=== PATIENT | female | born 1950 | race Caucasian/White ===

== ENCOUNTER → 2016-02-22 | Outpatient (CLI) | payer MEDICARE, BC | LOC: GMAL 10:43 | PROVIDERS: ATTEND Family Medicine | DX: D51.3 Other dietary vitamin B12 deficiency anemia (principal); E55.9 Vitamin D deficiency, unspecified ==

== ENCOUNTER → 2016-05-21 | Outpatient (CLI) | payer MEDICARE, BC | END | disposition home or self-care (01) | LOC: GMAL 14:15 | PROVIDERS: ATTEND Family Medicine | DX: D51.3 Other dietary vitamin B12 deficiency anemia (principal); E55.9 Vitamin D deficiency, unspecified; D53.9 Nutritional anemia, unspecified ==

== ENCOUNTER → 2016-05-30 | Outpatient (CLI) | payer MEDICARE ==
--- NOTE | 2016-05-30 17:04 | US ---
History: Peripheral vascular disease. Bilateral lower extremity arterial Doppler: Arterial Doppler evaluation of the lower extremities bilaterally is performed. Patency of the lower extremity vessels is confirmed without significant atheromatous change identified. Spectral waveforms and velocities are maintained bilaterally. Further assessment may be obtained with segmental arterial pressures. IMPRESSION: Spectral waveforms and velocities are within normal limits. Significant runoff disease is not suggested on the images obtained. Electronically signed by: Ernestina Zaragoza MD 05/30/2016 5:03 PM CDT
== END | disposition home or self-care (01) ==
LOC: US 07:54
PROVIDERS: ATTEND Family Medicine
DX: I73.9 Peripheral vascular disease, unspecified (principal)

== ENCOUNTER → 2016-08-28 | Outpatient (CLI) | payer MEDICARE | END | disposition home or self-care (01) | LOC: GMAL 10:39 | PROVIDERS: ATTEND Family Medicine | DX: N39.0 Urinary tract infection, site not specified (principal) ==

== ENCOUNTER → 2016-12-24 | Outpatient (CLI) | payer MEDICARE | END | disposition home or self-care (01) | LOC: GMAL 11:43 | PROVIDERS: ATTEND Family Medicine | DX: D51.3 Other dietary vitamin B12 deficiency anemia (principal) ==

== ENCOUNTER → 2016-12-31 | Outpatient (CLI) | payer MEDICARE | END | disposition home or self-care (01) | LOC: GMAL 14:27 | PROVIDERS: ATTEND Family Medicine | DX: N39.0 Urinary tract infection, site not specified (principal) ==

== ENCOUNTER 2017-02-27 08:07 | Emergency (ER) | payer MEDICARE ==
--- NOTE | 2017-02-27 08:29 | ED.PDOC ---
History of Present Illness - General Chief Complaint: Respiratory Problem Stated Complaint: shortness of breath/AMS Time Seen by Provider: 02/27/17 08:27 Source: EMS notes reviewed, family - son in law Exam Limitations: clinical condition, other - lethargic - History of Present Illness Initial Comments: Roxy Johnson 67 y/o female brought by ems after she was found leaning over on her side table this morning at home by her son in law; son in law tried talking to her this morning and was telling she is ok and leans back to her table so EMS was then called and noted O2 saturation at 80 %.She has COPD on home oxygen.Son in law stated that saw her Md 3 days ago for high blood pressure and elevated heart rate and was given prescription then 3 days ago have not been eating regularly and just wants to stay in her room. Timing/Duration: just prior to arrival Severity: moderate Episode Description: see hpi Possible Cause: occasional episodes Worsening Factors: nothing Associated Symptoms: other - patient lethargic Allergies/Adverse Reactions: Allergies NO KNOWN ALLERGY Allergy (Verified 10/11/15 10:41) Home Medications: Ambulatory Orders RX: Albuterol Sulfate Nebs [Proventil Nebs] 2.5 mg INH Q4H PRN 10/11/15 RX: Albuterol Sulfate [Proair Hfa] 2 puff INH Q4H PRN 10/11/15 RX: Budesonide-Formoterol Fumarate [Symbicort 80-4.5 Mcg/Act] 1 aer IN BID 10/10 RX: Diclofenac Sodium [Voltaren] 75 mg PO BID PRN 10/11/15 RX: Lisinopril & Hydrochlorothiazi [Lisinopril/Hctz 10-12.5 mg] 1 tab PO DAILY 10/11/15 RX: Montelukast [Singulair] 10 mg PO DAILY 10/11/15 RX: Tizanidine HCl [Zanaflex] 2 mg PO Q8H PRN 10/11/15 RX: Azithromycin Tab [Zithromax Tab] 250 mg PO Q24H #1 tab 10/14/15 RX: Cefdinir 300 mg PO BID #5 cap 10/14/15 RX: guaiFENesin ER TAB [Mucinex Tab] 600 mg PO BID #0 tab 10/14/15 predniSONE [Prednisone] 20 mg PO DAILY 5 Days tab 10/14/15 predniSONE [Prednisone] 40 mg PO DAILY 3 Days tab 10/14/15 Review of Systems - Review of Systems Respiratory: States: see HPI Unable to Obtain Due To: condition, other - lethargic non verbally responding Past Medical History (General) - Patient Medical History Hx Stroke: No Hx Asthma: Yes Hx of COPD: Yes Hx Congestive Heart Failure: No Hx Hypertension: Yes Hx Diabetes: No Hx MRSA: No Surgical History: noncontributory - Vaccination History Hx Influenza Vaccination: Yes - 2014 Hx Pneumococcal Vaccination: Yes - 2014 - Social History Hx Tobacco Use: Yes - Activities of Daily Living Grooming Ability: Standby Assistance Eating (Feeding) Ability: Standby Assistance Toileting Ability: Standby Assistance Family Medical History - Family History Mother Living Status: Hx Family Cancer: Yes Physical Exam - Physical Exam General Appearance: No apparent distress, Lethargic Eye Exam: bilateral normal ENT Exam: normal ENT inspection, pharynx normal Neck: full range of motion, supple, trachea midline Respiratory: chest non-tender, decreased breath sounds Cardiovascular/Chest: normal peripheral pulses, tachycardia - heart rate-116 Gastrointestinal/Abdominal: non tender, soft, no organomegaly Extremity: non-tender, no calf tenderness Neurologic: other - lethargic Skin Exam: normal color, warm/dry Progress - Progress Progress: 02/27/17 09:01 Last Vital Signs Temp 97.1 F L 02/27/17 08:19 Pulse 113 H 02/27/17 08:31 Resp 32 H 02/27/17 08:39 BP 126/65 02/27/17 08:19 Pulse Ox 97 02/27/17 08:31 - Results/Orders Results/Orders: Laboratory Tests 02/27/17 02/27/17 02/27/17 08:49 08:49 08:49 WBC 16.9 H RBC 3.71 L Hgb 11.2 L Hct 34.8 L MCV 93.7 MCH 30.1 MCHC 32.1 L RDW 14.3 Plt Count 307 MPV 9.0 Absolute Neuts (auto) 15.60 H Absolute Lymphs (auto) 0.30 L Absolute Monos (auto) 0.90 H Absolute Eos (auto) 0.00 Absolute Basos (auto) 0.00 Neutrophils % 92.6 H Lymphocytes % 1.9 L Monocytes % 5.3 Eosinophils % 0.0 L Basophils % 0.2 D-Dimer, Quantitative 871 H* Sodium 139 Potassium 4.3 Chloride 95 L Carbon Dioxide 33 H Anion Gap 15.3 BUN 23 H Creatinine 0.85 BUN/Creatinine Ratio 27.1 H Random Glucose 122 H Serum Osmolality 282.5 Calcium 9.2 Total Bilirubin 0.8 AST 16 ALT 15 Alkaline Phosphatase 87 Troponin I B-Natriuretic Peptide 335.0 H* Serum Total Protein 6.5 Albumin 3.0 L Globulin 3.5 Albumin/Globulin Ratio 0.9 L Urine Color Urine Appearance Urine pH Ur Specific [place] Urine Protein Urine Glucose (UA) Urine Ketones Urine Blood Urine Nitrite Urine Bilirubin Urine Urobilinogen Ur Leukocyte Esterase Urine RBC Urine WBC Ur Epithelial Cells Amorphous Sediment Urine Bacteria Coarse Granular Casts 02/27/17 02/27/17 08:49 09:38 WBC RBC Hgb Hct MCV MCH MCHC RDW Plt Count MPV Absolute Neuts (auto) Absolute Lymphs (auto) Absolute Monos (auto) Absolute Eos (auto) Absolute Basos (auto) Neutrophils % Lymphocytes % Monocytes % Eosinophils % Basophils % D-Dimer, Quantitative Sodium Potassium Chloride Carbon Dioxide Anion Gap BUN Creatinine BUN/Creatinine Ratio Random Glucose Serum Osmolality Calcium Total Bilirubin AST ALT Alkaline Phosphatase Troponin I 0.02 B-Natriuretic Peptide Serum Total Protein Albumin Globulin Albumin/Globulin Ratio Urine Color Yellow Urine Appearance Cloudy Urine pH 5.0 Ur Specific [place] >= 1.030 Urine Protein >=300 H Urine Glucose (UA) Negative Urine Ketones 15 H Urine Blood Large H Urine Nitrite Negative Urine Bilirubin Small H Urine Urobilinogen 1.0 Ur Leukocyte Esterase Negative Urine RBC 3-5 H Urine WBC 5-10 H Ur Epithelial Cells 1-3 Amorphous Sediment 3+ Urine Bacteria 2+ H Coarse Granular Casts 3-5 - EKG/XRAY/CT EKG: Sinus, Tachy Comments: heart [id number] XRAY: chest - cardiomegaly-chf;hazy alveolar opacities right lung base,small pleural effusion CT: head-no acute abnormalities CT Ordered: Yes - moderate copd,multiple lung nodule Departure - Departure Clinical Impression: COPD exacerbation, Pulmonary nodule, right Respiratory failure, acute and chronic Qualifiers: Respiratory failure complication: hypoxia Qualified Code(s): J96.21 - Acute and chronic respiratory failure with hypoxia Urinary tract infection Qualifiers: Urinary tract infection type: site unspecified Hematuria presence: with hematuria Qualified Code(s): N39.0 - Urinary tract infection, site not specified ; R31.9 - Hematuria, unspecified Altered mental status Qualifiers: Altered mental status type: unspecified Qualified Code(s): R41.82 - Altered mental status, unspecified Time of Disposition: 12:20 - D/W Mihir Edgar-ANP/Hospitalist Disposition: Admit Patient Condition: Fair Departure Forms: Patient Portal Self Enrollment Referrals: Javon Ortiz III, MD [Primary Care Provider] - 1-2 Weeks Home Medications: Ambulatory Orders RX: Albuterol Sulfate Nebs [Proventil Nebs] 2.5 mg INH Q4H PRN 10/11/15 RX: Albuterol Sulfate [Proair Hfa] 2 puff INH Q4H PRN 10/11/15 RX: Budesonide-Formoterol Fumarate [Symbicort 80-4.5 Mcg/Act] 1 aer IN BID 10/10 RX: Diclofenac Sodium [Voltaren] 75 mg PO BID PRN 10/11/15 RX: Lisinopril & Hydrochlorothiazi [Lisinopril/Hctz 10-12.5 mg] 1 tab PO DAILY 10/11/15 RX: Montelukast [Singulair] 10 mg PO DAILY 10/11/15 RX: Tizanidine HCl [Zanaflex] 2 mg PO Q8H PRN 10/11/15 RX: Azithromycin Tab [Zithromax Tab] 250 mg PO Q24H #1 tab 10/14/15 RX: Cefdinir 300 mg PO BID #5 cap 10/14/15 RX: guaiFENesin ER TAB [Mucinex Tab] 600 mg PO BID #0 tab 10/14/15 predniSONE [Prednisone] 20 mg PO DAILY 5 Days tab 10/14/15 predniSONE [Prednisone] 40 mg PO DAILY 3 Days tab 10/14/15 Decision To Admit - Decistion To Admit Decision to Admit Reason: Admit from ER - Patient desaturates need hospitalization for Iv steroids,breathing treatments and bipaps Decision to Admit Date: 02/27/17 Decision to Admit Time: 12:17
[2017-02-27] MEDS ORDERED: IPRATROPIUM/ALBUTEROL 3 ML VIAL NEB ONE ×2 (08:31)
--- NOTE | 2017-02-27 09:06 | RAD ---
EXAM DESCRIPTION: Chest,1 View CLINICAL HISTORY: Shortness of breath COMPARISON: October 14, 2015 Findings: Single upright portable frontal view of the chest. Cardiac silhouette shows cardiomegaly with increased interstitial markings bilaterally, compatible with interstitial edema. There is early hazy alveolar opacities in the right lung base, suggesting early pulmonary edema versus atelectasis versus early infiltrate. There is blunting of the right costophrenic angle with mildly thickened right fissure, compatible with small right-sided pleural effusion. No pneumothorax. IMPRESSION: 1. Cardiomegaly with interstitial edema, compatible with congestive heart failure. 2. Hazy alveolar opacities in the right lung base may represent early pulmonary edema versus atelectasis versus early infiltrate. 3. Blunting of the right costophrenic angle with mildly thickened fissure, compatible with small right-sided pleural effusion. Electronically signed by: Javon Mckeon MD 02/27/2017 9:05 AM WEB MARKETING ANALYST
--- NOTE | 2017-02-27 09:51 | CT ---
EXAM DESCRIPTION: Head: Computed Tomography. CLINICAL HISTORY: AMS. Decreasing responsiveness, speech, increasing somnolence. COMPARISON: None. TECHNIQUE: Non-helical axial scans through the skull and brain, at 2.5 mm intervals, non-contrast. Coronal and sagittal 2.0 mm reconstructions. Total Exam DLP: 677.23 mGy-cm. This exam was performed according to our departmental dose-optimization program which includes automated exposure control, adjustment of the mA and/or kV according to patient size and/or use of iterative reconstruction technique; to reduce radiation dose to as low as reasonably achievable (ALARA). Technically difficult study due to patient motion and patient mental status not allowing optimal positioning for the scan. FINDINGS: Motion artifact particularly posterior middle fossa. No hemorrhage, no mass-effect, and no midline shift. Minimal low-density bilateral periventricular white matter which is symmetric. No abnormal radiodense material in the brain parenchyma. Vascular calcifications anterior circulation; physiologic calcifications in the pineal gland and choroid plexus. No effacement or displacement of the ventricles, CSF spaces, or subdural spaces. No extra axial fluid collection or hemorrhage. No gross abnormalities of the bony calvarium. Loss of bone density in the skull. Included paranasal sinuses and mastoid air cells are well - aerated. IMPRESSION: 1. No hemorrhage, no mass effect, no midline shift. Technically difficult study due to patient mental status resulting in motion artifact and positioning less than optimal. Periventricular small vessel disease bilaterally symmetric. 2. CT scans are insensitive for detecting small CVAs in the first 24 hours after onset. Evaluation of the brain stem is also limited. If symptoms persist, consider MRI scan of the brain with diffusion imaging. CRITICAL COMMUNICATION: The critical value was discussed directly by phone with Emergency Medicine nurse assisting Dr. Marquez, Caprice Carpenter RN, at approximately 947 hours, on February 27, 2017. Electronically signed by: Shoaib Lerma MD 02/27/2017 9:50 AM BOX ORDER PERSON
[2017-02-27] MEDS ORDERED: cefTRIAXone SODIUM 1 GM in SODIUM CHL 0.9% 50ML MIN-BAG+ 50 ML IVPB ONE (10:21)
[2017-02-27] MEDS ORDERED: cefTRIAXone SODIUM 1 GM VIAL ONE (10:34)
[2017-02-27] MEDS ORDERED: SODIUM CHL 0.9% 50ML MIN-BAG+ 50 ML IVPB ONE (10:35)
--- NOTE | 2017-02-27 11:57 | CT ---
EXAM DESCRIPTION: CTA Chest: Computed tomography. CLINICAL HISTORY: elevated d -dimer;tachycardia;low sao2 COMPARISON: CT scan of the head and chest x-ray on this visit. TECHNIQUE: Spiral-axial scans at 5.0 mm intervals through the pulmonary arteries and chest after bolus infusion of IV contrast. Coronal 15.0 Mm 3-D reformat. 15.0 mm PE bilateral oblique oblique 3-D reformatted images. No adverse reactions. Total Exam DLP: 595.20 mGy-cm. This exam was performed according to our departmental CT dose-optimization program which includes automated exposure control, adjustment of the mA and/or kV according to patient size and/or use of iterative reconstruction technique; to reduce radiation dose to as low as reasonably achievable (ALARA). FINDINGS: The density of the main pulmonary artery is greater than that of the proximal aortic arch. Greater density in the superior IVC. Contrast in the main pulmonary artery to the proximal subsegmental pulmonary artery branches bilaterally with no filling defects. Inhomogeneous enhancement of the thyroid gland with 1.5 cm nonenhancing nodule left lobe. No soft tissue masses or enlarged lymph nodes in the mediastinum or left hilum. 1.2 cm short axis right hilar lymph node and a second 1 cm short axis lymph node. Atherosclerotic calcifications in the thoracic aorta and proximal brachiocephalic vessels. Atherosclerotic coronary arteries. Mosaic parenchymal density bilateral lung kathleen with more dilated airspaces in pulmonary blebs in the upper lobes. 6 mm soft tissue (series 2, image 26). Slightly more irregular 8 mm nodule subpleural base of the right middle lobe (image 42). Irregular 1.7 cm nodule in the posterior recess of the right lateral lower lobe abutting the pleura and diaphragm (image 58). Minimal pleural thickening in the right lower lobe. Irregular soft tissue nodule measuring 14 x 10 mm in the anterior subpleural lateral right lower lobe (image 47). Irregular pleural thickening left hemithorax and left lower lobe volume loss probably related to marked thoracic cage deformity from scoliosis. Somewhat irregular 6 mm nodule abutting the lateral pleura at the base of the left lower lobe. Nodule in the bilateral subpleural right middle lobe (image 56). Diffuse low-density in the liver. No subdiaphragmatic fluid or free air in the included peritoneal cavity. Included spleen and adrenal glands normal enhancement and density. Atherosclerotic calcifications in the aorta. Severe thoracolumbar levorotoscoliosis. Mild mid thoracic dextroscoliosis. Spondylosis cervical and thoracic spines, more severe at the thoracolumbar junction. IMPRESSION: 1. No evidence of acute pulmonary embolus on CTA of the pulmonary arteries. 2. Moderate emphysematous changes in the lungs more prevalent in the upper lobes. Several nodules are noted bilaterally. Enlarged 14 mm nodule or mass in the right middle lobe suspicious for primary lung malignancy or metastatic lesion. Possible adenopathy in the left hilum. Consider tissue diagnosis. Alternative PET scan or [address] follow-up. No pleural effusion or pneumothorax. 3. Severe thoracolumbar levorotoscoliosis. Cervical thoracic and lumbar spondylosis. Steatosis of the liver. CRITICAL COMMUNICATION: The critical value was discussed directly by phone with Dr. Marquez at approximately 1130 hours, on February 27, 2017. Electronically signed by: Shoaib Lerma MD 02/27/2017 11:56 AM [facility]
[2017-02-27] MEDS ORDERED: SUCCINYLCHOLINE CHLORIDE 200 MG/10 ML VIAL ONE (13:41)
--- NOTE | 2017-02-27 14:30 | RAD ---
EXAM DESCRIPTION: Chest,1 View CLINICAL HISTORY: s/p intubation COMPARISON: None available TECHNIQUE: AP portable chest FINDINGS: An endotracheal tube is seen at the level of the thoracic inlet. The chest is hyperexpanded. The heart is within range of normal. Convexity of the thoracic spine to the right is observed. Blunting of the right costophrenic sulcus is observed consistent with a small right pleural effusion. Interstitial lung disease is observed in the most part appears chronic in nature. IMPRESSION: 1. The patient is intubated. 2. Hyperexpansion of the chest is observed with interstitial lung disease suggesting chronic obstructive pulmonary disease. 3. A small right pleural effusion is identified. Electronically signed by: Javon Blount MD 02/27/2017 2:29 PM CARD RUNNER
[2017-02-27] MEDS ORDERED: VECURONIUM BROMIDE 10 MG VIAL IV ONE (14:44)
[2017-02-27] MEDS ORDERED: WATER FOR INJ 10 ML VIAL INJ ONE (15:00)
[2017-02-27] MEDS ORDERED: MIDAZOLAM INJ 5 MG/5 ML VIAL ONE (15:00)
[2017-02-27 15:22] VITALS: BP 111/68; TEMP 97.4; O2SAT 100
== END 2017-02-27 15:25 | disposition short-term general hospital (02) ==
LOC: ER 08:07
DX: J44.1 Chronic obstructive pulmonary disease with (acute) exacerbation (principal); J96.21 Acute and chronic respiratory failure with hypoxia; N39.0 Urinary tract infection, site not specified; R41.82 Altered mental status, unspecified; Z99.81 Dependence on supplemental oxygen; R91.8 Other nonspecific abnormal finding of lung field; I10 Essential (primary) hypertension
CPT/HCPCS: 36415; 36600; 70450; 71045; 71275; 80053; 81001; 82803; 82805; 83605; 83880; 84484; 85025; 85379; 87040; 87086; 87502; 93005; 94002; 94640; 94660; 94770; A4216; J0330; J0696; J2060; J2250; J7050; J7620

== ENCOUNTER 2017-03-19 16:50 | Inpatient (IN) | payer MEDICARE ==
[2017-03-19] MEDS ORDERED: MAGNESIUM HYDROXIDE 30 ML UD PO PRN (18:38)
[2017-03-19] MEDS ORDERED: ACETAMINOPHEN 500 MG TAB PO PRN (18:38)
[2017-03-19] MEDS ORDERED: HYDROcodone 5MG/APAP 325MG 1 EA TAB PO PRN (18:38)
[2017-03-19] MEDS ORDERED: TEMAZEPAM 15 MG CAP PO PRN (18:38)
[2017-03-19] MEDS ORDERED: SODIUM PHOS/BIPHOS ENEMA ADULT 133 ML BTTL PR PRN (18:38)
[2017-03-19] MEDS ORDERED: LORazepam 0.5 MG TAB PO PRN (18:49)
[2017-03-19] MEDS ORDERED: LISINOPRIL 10 MG TAB ONE (19:20)
[2017-03-19] MEDS: IPRATROPIUM/ALBUTEROL 3 ML VIAL NEB SCH (19:34)
--- NOTE | 2017-03-19 19:59 | HP ---
HISTORY OF PRESENT ILLNESS: This 67 year-old white female is admitted to Swing Bed rehabilitation from [facility]. She has had a significant 3 week course of severe illness requiring 2 hospitalizations at [facility] and a 1 night stay at [facility]. She originally became ill on February 23 on Friday. It started with severe shortness of breath to the point where she had difficulty speaking in sentences and could not get up and walk because of the shortness of breath. She was eventually brought to the Emergency Room where she had 5 hours of BiPAP usage and then a blood gas was performed that revealed CO2 of 88 and a low oxygen suggesting significant respiratory failure. She proceeded to fatigue and required emergency intubation and transfer to the ICU in [place] where she was cared for for over 2 weeks. She was subsequently discharged to [facility] with some respiratory overnight support suggesting a BiPAP or a CPAP machine which will be endeavored to determine which it was. The next morning after a night at [facility], she had to be readmitted to [facility] for another week of intensive care because of the significant failure. She was subsequently prepared and ready for discharge from the hospital and was transferred via family car to Swing Bed rehabilitation at [facility]. She is to enter a program of respiratory and strengthening rehabilitation until she will be safe to return home. PAST MEDICAL HISTORY: 1. Chronic obstructive pulmonary disease. 2. Hypertension. 3. Chronic tobacco usage. 4. Depression. 5. Chronic sciatica with low back pain. PAST SURGICAL HISTORY: 1. section twice. 2. Tubal ligation. 3. Tonsillectomy and adenoidectomy as a child. CURRENT MEDICATIONS: Please refer to nurses' notes for a list of verified home medications. We are still awaiting the Discharge Summary from the hospital which will assist. ALLERGIES: NONE KNOWN. FAMILY HISTORY: Positive for cancer, coronary artery disease and hypertension. 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 She is and lives in [place], [place] with daughter and family. She has a history of smoking 1 to 1-1/2 packs a day for 50+ years and stopped smoking about a year ago. REVIEW OF SYSTEMS: No significant weight change. No fever noted. HEENT: Hearing and vision appear to be normal. LUNGS: Significant shortness of breath recently but also in recent years getting progressively worse, especially aggravated by exertion. No significant cough or hemoptysis. CARDIOVASCULAR: No significant chest pains or palpitations. GASTROINTESTINAL: Appetite is diminished though slowly improving. No blood in the stools. GENITOURINARY: No dysuria. NEUROLOGIC: No focal weakness. No significant headaches. She is very weak and has not been able to significantly walk for the last 3 weeks. PHYSICAL EXAMINATION: VITAL SIGNS: Afebrile, pulse 14, blood pressure 158/78, respirations 22, room air saturation 79 when she arrived from transport with her oxygen having run out shortly before her arrival. Saturation was 100% on 3 liters which was decreased and will continue with titration to 90 to 93% for the duration. Weight is 63.9 kilos on a built-in bed scale. GENERAL: The patient is awake and alert. She is able to talk in full sentences. Still a little short of breath but much improved. She admits to not remembering much about her hospital stay initially or on the return from [facility], but she seems to be fully awake and alert at this time to her surroundings. HEENT: Within normal limits. NECK: Supple. CHEST: Lungs have diminished breath sounds with some upper airway expiratory wheezing and respiratory slowing on exhalation. Occasional rhonchi with diminished breath sounds. CARDIOVASCULAR: Heart tones are somewhat distant yet regular, somewhat fast. ABDOMEN: Soft. No organomegaly, masses or tenderness. EXTREMITIES: Trace of edema. SCDs in place. NEUROLOGIC: No focal neurological deficits. The patient is awake, alert and oriented and communicative. LABORATORY: None noted. We are awaiting a review of recent lab studies with anemia noted at [facility]. Repeat followup in a couple of days. ASSESSMENT: 1. Chronic obstructive pulmonary disease with an acute exacerbation with end stage disease process. 2. History of chronic tobacco abuse now stopped for a year. 3. History of recent acute respiratory failure with CO2 retention and respiratory acidosis showing some improvement and stabilization with the use of BiPAP respiratory support. 4. Anemia. Continue evaluation for the type, yet probably an anemia of chronic disease with a normocytic normochromic presentation to be determined. PLAN: The patient will be admitted for continued respiratory hygiene and bronchodilators. She will need strengthening with Physical Therapy supervision with special attention to cardiopulmonary endurance and improving her confidence so that when she goes home she will be able to assist in her care. Will request nurses to request Discharge Summary from [facility] tomorrow, hopefully when available. Continue close followup. #[id number] [facility]
[2017-03-19] MEDS: CIPROFLOXACIN 250 MG TAB PO SCH (20:22)
[2017-03-19] MEDS: LINEZOLID 600 MG PO SCH (20:23)
[2017-03-19] MEDS ORDERED: [UNRECOGNIZED DRUG - OTHER] INH SCH (21:00)
[2017-03-19] MEDS ORDERED: METOPROLOL TARTRATE 25 MG TAB PO SCH (21:00)
[2017-03-19] MEDS ORDERED: [UNRECOGNIZED DRUG - OTHER] INH SCH (21:00)
[2017-03-19] MEDS ORDERED: BUDESONIDE FORMOTEROL FUMARATE INH SCH (21:00)
[2017-03-19] MEDS: LEVALBUTEROL NEBS 1.25 MG/3 ML VIAL NEB PRN (23:50)
[2017-03-20] MEDS: LEVALBUTEROL NEBS 1.25 MG/3 ML VIAL NEB PRN (05:54)
[2017-03-20] MEDS: IPRATROPIUM/ALBUTEROL 3 ML VIAL NEB SCH ×3 (07:28→20:20)
[2017-03-20] MEDS: LINEZOLID 600 MG PO SCH ×2 (09:00→20:53)
[2017-03-20] MEDS: METOPROLOL TARTRATE 25 MG TAB PO SCH ×2 (09:41→16:27)
[2017-03-20] MEDS: LISINOPRIL 10 MG TAB PO SCH (09:41)
[2017-03-20] MEDS: CIPROFLOXACIN 250 MG TAB PO SCH ×2 (09:41→20:54)
[2017-03-20] MEDS: DOCUSATE SODIUM 100 MG CAP PO SCH (09:41)
[2017-03-20] MEDS: MONTELUKAST 10 MG TAB PO SCH (09:41)
[2017-03-20] MEDS: NON-FORMULARY MEDICATION 1 EA MIS (Tiotropium Bromide Monohydrate [Spiriva Respimat] 2 PUF INH SCH (11:15)
[2017-03-20] MEDS: [UNRECOGNIZED DRUG - OTHER] INH SCH ×2 (11:15→20:19)
[2017-03-20] MEDS: BUDESONIDE FORMOTEROL FUMARATE INH SCH ×2 (11:15→20:19)
[2017-03-20] MEDS: ALBUTEROL SULFATE INH SCH ×2 (11:15→20:19)
[2017-03-21] MEDS: LEVALBUTEROL NEBS 1.25 MG/3 ML VIAL NEB PRN (04:39)
[2017-03-21] MEDS: LISINOPRIL 10 MG TAB PO SCH (07:53)
[2017-03-21] MEDS: IPRATROPIUM/ALBUTEROL 3 ML VIAL NEB SCH ×3 (08:29→20:30)
[2017-03-21] MEDS: [UNRECOGNIZED DRUG - OTHER] INH SCH ×2 (08:29→20:31)
[2017-03-21] MEDS: BUDESONIDE FORMOTEROL FUMARATE INH SCH ×2 (08:29→20:31)
[2017-03-21] MEDS: NON-FORMULARY MEDICATION 1 EA MIS (Tiotropium Bromide Monohydrate [Spiriva Respimat] 2 PUF INH SCH (08:29)
[2017-03-21] MEDS: CIPROFLOXACIN 250 MG TAB PO SCH ×2 (09:13→21:27)
[2017-03-21] MEDS: BIFIDOBACTERIUM INFANTIS 4 MG CAP PO SCH (09:13)
[2017-03-21] MEDS: MONTELUKAST 10 MG TAB PO SCH (09:13)
[2017-03-21] MEDS: DOCUSATE SODIUM 100 MG CAP PO SCH (09:13)
[2017-03-21] MEDS: LINEZOLID 600 MG PO SCH ×2 (09:16→21:27)
[2017-03-21] MEDS: METOPROLOL TARTRATE 25 MG TAB PO SCH ×2 (09:16→17:07)
[2017-03-21] MEDS: ALBUTEROL SULFATE INH SCH ×2 (15:44→20:31)
[2017-03-22] MEDS: METOPROLOL TARTRATE 25 MG TAB PO SCH ×2 (08:00→17:44)
[2017-03-22] MEDS: BUDESONIDE FORMOTEROL FUMARATE INH SCH ×2 (08:13→19:59)
[2017-03-22] MEDS: IPRATROPIUM/ALBUTEROL 3 ML VIAL NEB SCH ×3 (08:13→19:58)
[2017-03-22] MEDS: [UNRECOGNIZED DRUG - OTHER] INH SCH ×2 (08:13→19:59)
[2017-03-22] MEDS: NON-FORMULARY MEDICATION 1 EA MIS (Tiotropium Bromide Monohydrate [Spiriva Respimat] 2 PUF INH SCH (08:14)
[2017-03-22] MEDS: BIFIDOBACTERIUM INFANTIS 4 MG CAP PO SCH (10:00)
[2017-03-22] MEDS: CIPROFLOXACIN 250 MG TAB PO SCH ×2 (10:00→20:55)
[2017-03-22] MEDS: DOCUSATE SODIUM 100 MG CAP PO SCH (10:00)
[2017-03-22] MEDS: MONTELUKAST 10 MG TAB PO SCH (10:00)
[2017-03-22] MEDS: LINEZOLID 600 MG PO SCH ×2 (10:00→20:55)
[2017-03-22] MEDS: LISINOPRIL 10 MG TAB PO SCH (10:00)
[2017-03-22] MEDS: ALBUTEROL SULFATE INH SCH ×2 (10:54→20:01)
[2017-03-22] MEDS ORDERED: CALCIUM CARBONATE (ANTACID) 500 MG CHEWABLE TAB PO PRN (21:34)
[2017-03-23] MEDS: BIFIDOBACTERIUM INFANTIS 4 MG CAP PO SCH (08:15)
[2017-03-23] MEDS: LINEZOLID 600 MG PO SCH ×2 (08:15→20:31)
[2017-03-23] MEDS: METOPROLOL TARTRATE 25 MG TAB PO SCH ×2 (08:15→16:37)
[2017-03-23] MEDS: LISINOPRIL 10 MG TAB PO SCH (08:15)
[2017-03-23] MEDS: CIPROFLOXACIN 250 MG TAB PO SCH ×2 (08:15→20:32)
[2017-03-23] MEDS: DOCUSATE SODIUM 100 MG CAP PO SCH (08:16)
[2017-03-23] MEDS: MONTELUKAST 10 MG TAB PO SCH (08:16)
[2017-03-23] MEDS: NON-FORMULARY MEDICATION 1 EA MIS (Tiotropium Bromide Monohydrate [Spiriva Respimat] 2 PUF INH SCH (08:43)
[2017-03-23] MEDS: [UNRECOGNIZED DRUG - OTHER] INH SCH ×2 (08:43→19:50)
[2017-03-23] MEDS: BUDESONIDE FORMOTEROL FUMARATE INH SCH ×2 (08:43→19:50)
[2017-03-23] MEDS: IPRATROPIUM/ALBUTEROL 3 ML VIAL NEB SCH ×3 (08:43→19:50)
[2017-03-23] MEDS: ALBUTEROL SULFATE INH SCH (09:12)
[2017-03-23] MEDS ORDERED: ALBUTEROL SULFATE INH PRN (09:15)
[2017-03-23] MEDS: PANTOPRAZOLE SODIUM TAB 40 MG PO SCH (10:01)
[2017-03-24] MEDS: PANTOPRAZOLE SODIUM TAB 40 MG PO SCH (06:05)
[2017-03-24] MEDS: LEVALBUTEROL NEBS 1.25 MG/3 ML VIAL NEB PRN (06:50)
[2017-03-24] MEDS: CIPROFLOXACIN 250 MG TAB PO SCH (08:39)
[2017-03-24] MEDS: MONTELUKAST 10 MG TAB PO SCH (08:39)
[2017-03-24] MEDS: METOPROLOL TARTRATE 25 MG TAB PO SCH ×2 (08:39→17:41)
[2017-03-24] MEDS: DOCUSATE SODIUM 100 MG CAP PO SCH (08:39)
[2017-03-24] MEDS: LINEZOLID 600 MG PO SCH (08:40)
[2017-03-24] MEDS: BIFIDOBACTERIUM INFANTIS 4 MG CAP PO SCH (08:40)
[2017-03-24] MEDS: LISINOPRIL 10 MG TAB PO SCH ×2 (08:42→09:00)
--- NOTE | 2017-03-24 08:59 | PN ---
SUPERVISING PHYSICIAN: Victorino Proctor MD DATE: 03/23/17 SUBJECTIVE: The patient is showing good response with physical therapy on Swing Bed admission. She has had no further setbacks in regard to her chronic obstructive pulmonary disease and respiratory efforts. She does remain short of breath at rest at times, but is doing well with nasal cannula and CPAP at night. She has finished her antibiotic therapy today including her Zyvox and Cipro. OBJECTIVE: VITAL SIGNS: Afebrile. Pulse between 89 and 112. Blood pressure currently today was 110/73. Respirations 19. Saturation 96% on nasal cannula at rest on 2 liters. I&Os have been well balanced. LABORATORY: No additional studies since admission. RADIOLOGY: No additional studies since admission. ASSESSMENT: 1. Chronic obstructive pulmonary disease with an acute exacerbation with end stage disease process. 2. History of chronic tobacco abuse, now stopped for a year. 3. History of recent acute respiratory failure with CO2 retention and respiratory acidosis, showing some improvement and stabilization with the use of BiPAP and CPAP respiratory support. 4. Anemia, probable chronic in nature with normocytic/normochromic presentation, needing close followup. 5. Significant deconditioning and weakness from extensive hospitalization and chronic illness, requiring further clinical evaluation and treatment with physical therapy on Swing Bed. PLAN: We will continue to follow the patient as she progresses through her physical therapy. She remains on good respiratory hygiene and bronchodilators. She has shown no additional exacerbations of her chronic obstructive pulmonary disease or respiratory efforts. She will need close attention to cardiopulmonary endurance prior to going home with considerations possibly for O2 with cardiopulmonary rehab. We will anticipate discharge at physical therapy 's discretion. Until then, we will continue to monitor the patient closely and treat appropriately. #[id number] [facility]
[2017-03-24] MEDS: BUDESONIDE FORMOTEROL FUMARATE INH SCH ×2 (09:31→19:49)
[2017-03-24] MEDS: NON-FORMULARY MEDICATION 1 EA MIS (Tiotropium Bromide Monohydrate [Spiriva Respimat] 2 PUF INH SCH (09:31)
[2017-03-24] MEDS: [UNRECOGNIZED DRUG - OTHER] INH SCH ×2 (09:31→19:49)
[2017-03-24] MEDS: IPRATROPIUM/ALBUTEROL 3 ML VIAL NEB SCH ×3 (09:31→19:47)
[2017-03-25] MEDS: PANTOPRAZOLE SODIUM TAB 40 MG PO SCH (06:06)
[2017-03-25] MEDS: NON-FORMULARY MEDICATION 1 EA MIS (Tiotropium Bromide Monohydrate [Spiriva Respimat] 2 PUF INH SCH (08:19)
[2017-03-25] MEDS: [UNRECOGNIZED DRUG - OTHER] INH SCH ×2 (08:19→21:22)
[2017-03-25] MEDS: IPRATROPIUM/ALBUTEROL 3 ML VIAL NEB SCH ×3 (08:19→21:22)
[2017-03-25] MEDS: BUDESONIDE FORMOTEROL FUMARATE INH SCH ×2 (08:19→21:22)
[2017-03-25] MEDS: DOCUSATE SODIUM 100 MG CAP PO SCH (08:46)
[2017-03-25] MEDS: BIFIDOBACTERIUM INFANTIS 4 MG CAP PO SCH (08:46)
[2017-03-25] MEDS: MONTELUKAST 10 MG TAB PO SCH (08:46)
[2017-03-25] MEDS: LISINOPRIL 10 MG TAB PO SCH (08:46)
[2017-03-25] MEDS: METOPROLOL TARTRATE 25 MG TAB PO SCH ×2 (08:46→17:02)
--- NOTE | 2017-03-25 13:23 | PN ---
SUPERVISING PHYSICIAN: Bassam Douglas MD DATE: 03/25/17 SUBJECTIVE: Ms. Johnson is currently complaining of a little bit of shortness of breath. She has had a little bit of a low O2 saturation this morning. She states that she usually uses 3 to 4 liters at home and she is on 2.5 here. O2 saturations were around 88%. She states at home that she runs anywhere from 92 % to 94% on home oxygen. She does not have any complaints of chest pain at this time. She has been participating in physical therapy and according to the physical therapist is at around 70 feet as far as walking is concerned. The goal is to get to 100 feet. OBJECTIVE: VITAL SIGNS: Blood pressure 112/62. Heart rate 92. Respiratory rate 22. Temperature 97.6. Oxygen saturation 99%. GENERAL: Ms. Johnson has some mild respiratory distress, but seems to be controlled at rest at this time. NEUROLOGIC: Alert and oriented. LUNGS: Diminished with no active wheezing. CARDIOVASCULAR: Regular rate and rhythm. Normal S1, S2. ABDOMEN: Soft. Positive bowel sounds. EXTREMITIES: Lower extremities with no edema. Good peripheral pulses. Capillary refill less than 2 seconds. ASSESSMENT: 1. Chronic obstructive pulmonary disease. 2. Anemia. 3. Deconditioning and weakness secondary to her hospitalization and chronic illness. PLAN: We will continue with physical therapy. I am not going to change her medicines at all at this time as it appears she is on appropriate medications. The plan at this time is that she will be discharged home on . I did discuss with her the possibility of needing a pulmonary evaluation with a fountain dispenser. She has not seen one in the past. [facility] does have a fountain dispenser that comes weekly and we may consider setting her up with Dr. Shane in the outpatient setting. #[id number] MTDD
[2017-03-26] MEDS: PANTOPRAZOLE SODIUM TAB 40 MG PO SCH (06:18)
[2017-03-26] MEDS: METOPROLOL TARTRATE 25 MG TAB PO SCH ×2 (07:52→18:26)
[2017-03-26] MEDS: BUDESONIDE FORMOTEROL FUMARATE INH SCH ×2 (08:16→20:09)
[2017-03-26] MEDS: NON-FORMULARY MEDICATION 1 EA MIS (Tiotropium Bromide Monohydrate [Spiriva Respimat] 2 PUF INH SCH (08:16)
[2017-03-26] MEDS: IPRATROPIUM/ALBUTEROL 3 ML VIAL NEB SCH ×3 (08:16→20:09)
[2017-03-26] MEDS: [UNRECOGNIZED DRUG - OTHER] INH SCH ×2 (08:16→20:09)
[2017-03-26] MEDS: BIFIDOBACTERIUM INFANTIS 4 MG CAP PO SCH (09:39)
[2017-03-26] MEDS: MONTELUKAST 10 MG TAB PO SCH (09:39)
[2017-03-26] MEDS: LISINOPRIL 10 MG TAB PO SCH (09:40)
[2017-03-26] MEDS: DOCUSATE SODIUM 100 MG CAP PO SCH (09:40)
[2017-03-27] MEDS: PANTOPRAZOLE SODIUM TAB 40 MG PO SCH (06:22)
[2017-03-27] MEDS: LISINOPRIL 10 MG TAB PO SCH (08:10)
[2017-03-27] MEDS: MONTELUKAST 10 MG TAB PO SCH (08:10)
[2017-03-27] MEDS: BIFIDOBACTERIUM INFANTIS 4 MG CAP PO SCH (08:10)
[2017-03-27] MEDS: METOPROLOL TARTRATE 25 MG TAB PO SCH ×2 (08:10→17:29)
[2017-03-27] MEDS: DOCUSATE SODIUM 100 MG CAP PO SCH (08:10)
[2017-03-27] MEDS: BUDESONIDE FORMOTEROL FUMARATE INH SCH ×2 (08:16→19:50)
[2017-03-27] MEDS: IPRATROPIUM/ALBUTEROL 3 ML VIAL NEB SCH ×3 (08:16→19:50)
[2017-03-27] MEDS: [UNRECOGNIZED DRUG - OTHER] INH SCH ×2 (08:16→19:50)
[2017-03-27] MEDS: NON-FORMULARY MEDICATION 1 EA MIS (Tiotropium Bromide Monohydrate [Spiriva Respimat] 2 PUF INH SCH (08:16)
[2017-03-27] MEDS: LEVALBUTEROL NEBS 1.25 MG/3 ML VIAL NEB PRN (18:04)
[2017-03-28] MEDS: LEVALBUTEROL NEBS 1.25 MG/3 ML VIAL NEB PRN ×2 (01:54→06:54)
[2017-03-28] MEDS: PANTOPRAZOLE SODIUM TAB 40 MG PO SCH (06:16)
[2017-03-28 07:34] VITALS: BP 133/69; TEMP 97.8
[2017-03-28] MEDS: METOPROLOL TARTRATE 25 MG TAB PO SCH (07:34)
[2017-03-28] MEDS: DOCUSATE SODIUM 100 MG CAP PO SCH (08:22)
[2017-03-28] MEDS: LISINOPRIL 10 MG TAB PO SCH (08:22)
[2017-03-28] MEDS: BIFIDOBACTERIUM INFANTIS 4 MG CAP PO SCH (08:22)
[2017-03-28] MEDS: MONTELUKAST 10 MG TAB PO SCH (08:22)
[2017-03-28] MEDS: NON-FORMULARY MEDICATION 1 EA MIS (Tiotropium Bromide Monohydrate [Spiriva Respimat] 2 PUF INH SCH (08:38)
[2017-03-28] MEDS: BUDESONIDE FORMOTEROL FUMARATE INH SCH (08:38)
[2017-03-28] MEDS: IPRATROPIUM/ALBUTEROL 3 ML VIAL NEB SCH (08:38)
[2017-03-28] MEDS: [UNRECOGNIZED DRUG - OTHER] INH SCH (08:38)
[2017-03-28 15:44] VITALS: O2SAT 96
--- NOTE | 2017-03-29 18:53 | DS ---
SUPERVISING PHYSICIAN: Bassam Douglas M.D. DISCHARGE DIAGNOSIS: 1. Chronic obstructive pulmonary disease with acute exacerbation and end stage disease process. 2. History of chronic tobacco abuse now stopped for approximately one year. 3. History of recent acute respiratory failure with CO2 retention and respiratory acidosis. She improved and stabilized with the use of BiPAP and CPAP respiratory support. 4. Anemia most likely chronic in nature with a normocytic normochromic presentation. 5. Significant deconditioning and weakness from extensive hospitalization and chronic illness currently in the hospital for strengthening and conditioning with physical therapy on Swing Bed. HISTORY OF PRESENT ILLNESS: This is a 67 year-old white female that was admitted to Swing Bed rehab from [facility]. She has had an approximately 3 week course of severe illness requiring 2 hospitalizations at [facility] and 1 night stay at [facility]. She originally became ill on February 23 that started with shortness of breath and had difficulty speaking in sentences. She could not get up to walk due to the shortness of breath. She was eventually brought to the Emergency Room where she had 5 hours of BiPAP usage. Blood gas was performed that revealed a CO2 of 88 and low oxygenation showing significant respiratory failure. She required emergent intubation and was transferred to ICU in [place]. Her care continued at [facility] for over 2 weeks, then she was subsequently discharged to [facility]. After 1 night at [facility] she went into some respiratory distress and was sent back to [facility] where there was the utilization of BiPAP. She required another week of intensive care at [facility]. Initially she was to be sent to [facility] for hospice support, but as the patient made significant improvement in her illness, she was sent to [facility] for physical therapy for strengthening and conditioning. HOSPITAL COURSE: During her hospitalization here she continued to progress. She had no major issues with her medications over the course of her stay. Initially it was difficult to obtain records from [facility] and she was continued on her previous medications. She had been given oral Zyvox at [facility] and that was continued here. She has improved to the point that we will send her home. She will be followed by home health. DISCHARGE PLAN: The patient will be discharged home with home health. She has a followup appointment with Dr. Ortiz on 04/03/17 at 1:45 PM. Her previous medications will be resumed and she will complete her Zyvox oral medication to completion. I have also added Align to her medications. It may be beneficial to have a cardiopulmonary referral on discharge as well as to see a sock drier here in [place]. She is to call Dr. Ortiz' office or return to the hospital for any further problems or complications. DISCHARGE MEDICATIONS: 1. Spiriva. 2. Singulair. 3. Zyvox. 4. Proventil. 5. Metoprolol. 6. Lisinopril. 7. Atrovent. 8. Symbicort. 9. ProAir HFA. 10. Align. #[id number] MTDD
== END 2017-03-28 12:24 | disposition home health service (06) | DRG 192 ==
LOC: MS 16:50
PROVIDERS: ADMIT Emergency Medicine; ATTEND Nurse Practitioner Acute Care
PROC: F07Z9FZ Gait Training/Functional Ambulation Treatment using Assistive, Adaptive, Supportive or Protective Equipment (ICD-10-PCS; principal; 2017-03-19)
DX: J44.1 Chronic obstructive pulmonary disease with (acute) exacerbation (principal); M62.81 Muscle weakness (generalized); I10 Essential (primary) hypertension; F32.9 Major depressive disorder, single episode, unspecified; M54.40 Lumbago with sciatica, unspecified side; D63.8 Anemia in other chronic diseases classified elsewhere; Z87.891 Personal history of nicotine dependence; Z99.81 Dependence on supplemental oxygen; Z66 Do not resuscitate

== ENCOUNTER → 2017-03-31 | Outpatient (CLI) | payer MEDICARE | LOC: SL 19:51 | PROVIDERS: ATTEND Nurse Practitioner | DX: G47.33 Obstructive sleep apnea (adult) (pediatric) (principal) ==

== ENCOUNTER → 2017-04-06 | Outpatient (CLI) | payer MEDICARE | LOC: BFHOS 14:16 | PROVIDERS: ATTEND Family Medicine | DX: N39.0 Urinary tract infection, site not specified (principal) ==

== ENCOUNTER 2017-04-08 10:34 | Inpatient (IN) | payer MEDICARE ==
[2017-04-08] MEDS ORDERED: SODIUM CHLORIDE 0.9% (FLUSH) 10 ML SYG IV PRN ×2 (11:09→14:24)
[2017-04-08] MEDS ORDERED: IPRATROPIUM/ALBUTEROL 3 ML VIAL INH ONE (11:09)
[2017-04-08] MEDS ORDERED: IPRATROPIUM/ALBUTEROL 3 ML VIAL NEB ONE ×2 (11:10→11:18)
[2017-04-08] MEDS ORDERED: DEXAMETHASONE INJ 4 MG, SODIUM CHLORIDE 0.9% NEB 3 ML NEB ONE ×2 (11:16)
[2017-04-08] MEDS ORDERED: DEXAMETHASONE INJ 4 MG/ML VIAL ONE (11:17)
[2017-04-08] MEDS ORDERED: methylPREDNISolone SODIUM SUC 125 MG/2 ML VIAL IV ONE (11:19)
--- NOTE | 2017-04-08 11:22 | ED.PDOC ---
History of Present Illness - General Chief Complaint: Respiratory Problem Stated Complaint: Shortness of breath, fever Time Seen by Provider: 04/08/17 10:56 Source: patient, family Exam Limitations: no limitations - History of Present Illness Initial Comments: PT WITH COPD, ON CHRONIC HOME 02. INCREASED SOB PAST 2 D. SATS 80 - 85% AT HOME PAST 2 D. CURRENTLY HAS UTI, NOT ON ABX YET. PT DENIES CP OR ANY PAIN. Severity: severe Activities at Onset: none Possible Cause: other - PT WAS JUST DX'D WITH UTI; IS NOT ON ABX YET. Improving Factors: nothing Worsening Factors: movement Associated Symptoms: denies symptoms Respiratory Risk Factors: no cause identified Allergies/Adverse Reactions: Allergies NO KNOWN ALLERGY Allergy (Verified 03/19/17 17:32) Home Medications: Ambulatory Orders Albuterol Sulfate Nebs [Proventil Nebs] 2.5 mg INH Q4H PRN 03/19/17 Budesonide-Formoterol Fumarate [Symbicort 80-4.5 Mcg/Act] 2 puff INH BID Ipratropium Mccracken Nebs [Atrovent NEBS] 0.5 mg INH TID 03/19/17 Lisinopril 20 mg PO BID 03/19/17 Montelukast [Singulair] 10 mg PO DAILY 03/19/17 Tiotropium Mccracken Monohydrate [Spiriva Respimat] 2 puff INH DAILY 03/19/17 Albuterol Sulfate [Proair Hfa] 2 puff INH BID 03/20/17 Albuterol Sulfate [Proair Hfa] 2 puff INH Q4H PRN 03/20/17 Bifidobacterium Infantis [Align] 4 mg PO DAILY cap 03/28/17 LORazepam [Ativan] 0.5 mg PO DAILY PRN 04/08/17 Nebivolol HCl [Bystolic] 5 mg PO DAILY 04/08/17 Review of Systems - Review of Systems Constitutional: Denies: chills, fever EENTM: Denies: ear pain, nose congestion Respiratory: States: short of breath, wheezing. Denies: cough Cardiology: Denies: chest pain, palpitations Gastrointestinal/Abdominal: Denies: abdominal pain, diarrhea, nausea Genitourinary: States: no symptoms reported Musculoskeletal: States: no symptoms reported Skin: States: no symptoms reported Neurological: States: no symptoms reported Endocrine: States: no symptoms reported Hematologic/Lymphatic: States: no symptoms reported All other Systems: Reviewed and Negative Past Medical History (General) - Patient Medical History Hx Seizures: No Hx Stroke: No Hx Asthma: No Hx of COPD: Yes Hx Congestive Heart Failure: No Hx Pacemaker: No Hx Hypertension: Yes Hx Diabetes: No Hx MRSA: No - Vaccination History Hx Influenza Vaccination: Yes Hx Pneumococcal Vaccination: - 2017 Immunizations Up to Date: - 2016 - Social History Hx Tobacco Use: Yes - Quit 2017 Hx Alcohol Use: No Hx Substance Use: No Hx Physical Abuse: No Hx Emotional Abuse: No Family Medical History - Family History Mother Living Status: Hx Family Cancer: Yes Physical Exam - Physical Exam General Appearance: Alert, Other - MODERATE RESP DISTRESS Eyes, Ears, Nose, Throat Exam: PERRL/EOMI, normal ENT inspection Neck: non-tender, full range of motion Respiratory: respiratory distress, decreased breath sounds, accessory muscle use Cardiovascular/Chest: normal peripheral pulses, no edema, no gallop, no JVD, no murmur Peripheral Pulses: radial,right: 2+, radial,left: 2+ Gastrointestinal/Abdominal: normal bowel sounds, non tender, soft Extremity: non-tender, normal inspection, other - NO JVD, NO PEDAL EDEMA, THUS NO CLINICAL SIGNS OF CHF. Neurologic: no motor/sensory deficits, alert, normal mood/affect, oriented x 3 Skin Exam: warm/dry, other - MILDLY ASHEN APPEARANCE. Lymphatic: no adenopathy Progress - Progress Progress: 04/08/17 11:42 NOTE: THE HOSPITAL DOES NOT HAVE ANY RAPID FLU TESTS; ON BACKORDER. ROCEPHIN IV SINCE PT WAS TOLD SHE ALREADY HAS A UTI; AND THIS WILL EMPIRICALLY COVER RESPIRATORY WELL. THUS MY PLAN IS HOME (IS SHE IS ABLE TO BE DISCHARGED) ON AUGMENTIN TO COVER UTI AND RESPIRATORY. CHECKING UA AND BLOOD CX PRIOR TO ABX ADMINISTRATION. 04/08/17 20:28 PT'S RESPIRATOR STATUS DID NOT IMPROVE WITH DUONEBS X 3 AND STEROIDS. THUS BEING ADMITTED BY DR. PERALES. THANK YOU, [facility], FOR ACCEPTING ADMISSION. SEPSIS WITH POS SIRS (RR 32, 02 89% ON 3L, P 111) AND UTI INFECTIOUS SOURCE. ABG RESP ACIDOSIS, HYPOXEMIA. CO2 RETENTION - WILL NEED BIPAP IN-PT. ANEMIA HYPOKALEMIA CXR AND CARD ENZ NEG. EKG SINUS TACH. BL CX PENDING. UA POS LEUK EST, WBC, BACTERIA. Departure - Departure Clinical Impression: Sepsis, UTI (urinary tract infection), Respiratory acidosis, Hypoxemia, Anemia , Hypokalemia, Sinus tachycardia by electrocardiogram, Dyspnea, COPD with exacerbation, Tachypnea, Hypoxia Condition: Serious Departure Forms: ED Discharge - Pt. Copy, Patient Portal Self Enrollment Home Medications: Ambulatory Orders Albuterol Sulfate Nebs [Proventil Nebs] 2.5 mg INH Q4H PRN 03/19/17 Budesonide-Formoterol Fumarate [Symbicort 80-4.5 Mcg/Act] 2 puff INH BID Ipratropium Mccracken Nebs [Atrovent NEBS] 0.5 mg INH TID 03/19/17 Lisinopril 20 mg PO BID 03/19/17 Montelukast [Singulair] 10 mg PO DAILY 03/19/17 Tiotropium Mccracken Monohydrate [Spiriva Respimat] 2 puff INH DAILY 03/19/17 Albuterol Sulfate [Proair Hfa] 2 puff INH BID 03/20/17 Albuterol Sulfate [Proair Hfa] 2 puff INH Q4H PRN 03/20/17 Bifidobacterium Infantis [Align] 4 mg PO DAILY cap 03/28/17 LORazepam [Ativan] 0.5 mg PO DAILY PRN 04/08/17 Nebivolol HCl [Bystolic] 5 mg PO DAILY 04/08/17 Decision To Admit - Decistion To Admit Decision to Admit Reason: Admit from ER Decision to Admit Date: 04/08/17 Decision to Admit Time: 20:34
[2017-04-08] MEDS: IPRATROPIUM/ALBUTEROL 3 ML VIAL NEB PRN ×2 (11:25→12:44)
[2017-04-08] MEDS ORDERED: cefTRIAXone SODIUM 1 GM VIAL IV ONE (11:31)
[2017-04-08] MEDS ORDERED: cefTRIAXone SODIUM 1 GM in SODIUM CHL 0.9% 50ML MIN-BAG+ 50 ML IVPB ONE (11:42)
[2017-04-08] MEDS ORDERED: cefTRIAXone SODIUM 1 GM VIAL ONE (11:46)
[2017-04-08] MEDS ORDERED: SODIUM CHL 0.9% 50ML MIN-BAG+ 50 ML IVPB ONE (11:46)
--- NOTE | 2017-04-08 13:28 | RAD ---
EXAM DESCRIPTION: Chest,1 View CLINICAL HISTORY: cough, shortness of breath, fever COMPARISON: February 27, 2017 IMPRESSION: Single AP portable upright view of the chest shows cardiac silhouette and pulmonary vasculature to be within normal limits. Moderate calcifications of the thoracic aortic arch are seen. Lungs are normally aerated. There remains chronic appearing increased interstitial markings throughout the lungs without acute appearing infiltrate or consolidation. Scoliosis of the spine is seen. No obvious pleural effusion or pneumothorax is seen. Electronically signed by: Gilles Lama MD 04/08/2017 1:27 PM [facility]PARTMENT END FINDER
[2017-04-08] MEDS ORDERED: MAGNESIUM HYDROXIDE 30 ML UD PO PRN (14:30)
[2017-04-08] MEDS ORDERED: HYDROcodone 5MG/APAP 325MG 1 EA TAB PO PRN (14:30)
[2017-04-08] MEDS ORDERED: IV SET AND CAP CHANGE INJ INJ SCH (14:30)
[2017-04-08] MEDS ORDERED: LORazepam 0.5 MG TAB PO PRN (14:32)
[2017-04-08] MEDS ORDERED: DEXAMETHASONE INJ 2 MG, SODIUM CHLORIDE 0.9% NEB 3 ML NEB ONE ×2 (14:33)
--- NOTE | 2017-04-08 15:19 | HP ---
HISTORY OF PRESENT ILLNESS: This 67-year-old, white female was admitted to the hospital from the Emergency Room because of worsening shortness of breath. She has been getting worse for the last 3 or 4 days and requiring increased oxygen. Decreased ability to ambulate. Just sitting on the commode chair next to her bed results in desaturation into the 50 percents. No significant pain. She is so short of breath that she has difficulty speaking. She has had similar symptoms in the past. She stopped smoking the first of February, last month. She was last in [facility] as a Swing Bed rehab candidate being discharged about 11 days ago on 03/28/17. When she arrived in the Emergency Room, her saturation was in the low 80s on 2 liters nasal cannula. Her appetite is fair. She has had recently had a urinary tract infection documented by home health under Dr. Ortiz' order. Final culture was achieved this morning and showed a Pseudomonas species. She has had some weight loss. History of intubation required in the past. She has been on BiPAP, but has been unable to utilize it because of a bad connection as she is now going from a nasal mask to a full facemask to assist with her breathing since she is quite easily a mouth breather. PAST MEDICAL HISTORY: 1. Chronic obstructive pulmonary disease. 2. Hypertension. 3. Chronic tobacco abuse. 4. Depression. 5. Chronic sciatica with low back pain. PAST SURGICAL HISTORY: 1. section on 2 occasions. 2. Tubal ligation. 3. Tonsillectomy and adenoidectomy as a child. CURRENT MEDICATIONS: Please refer to nursing notes for a list of verified home medications. ALLERGIES: NONE KNOWN. FAMILY HISTORY: Positive for cancer, coronary artery disease, hypertension. 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 She is and lives in [place] with daughter and family. She has had a history of smoking up to 1-1/2 packs a day for over 50 years and stopped smoking the first of last month. REVIEW OF SYSTEMS: GENERAL: No significant weight change. No fever noted. HEENT: Unremarkable. LUNGS: Significant shortness of breath, helped by oxygen supplementation. CARDIOVASCULAR: No significant chest pains. She has had a rapid pulse. GASTROINTESTINAL: Generally soft. EXTREMITIES: Fairly well formed with no significant pedal edema. NEUROLOGIC: No focal neurological deficits, but the patient is very weak and having difficulty communicating because of the shortness of breath. PHYSICAL EXAMINATION: VITAL SIGNS: Afebrile with pulse 110. Blood pressure 172/84. Pulse oximetry 89% on 2 liters, down to 60% on nasal cannula having to be switched to Venturi mask at 30% in order to get it up into the upper 80%. ABDOMEN: Soft. EXTREMITIES: No significant edema. NEUROLOGIC: No focal neurological deficits are noted. Coloration is somewhat ashen and somewhat pale. LABORATORY: White count 5,100, hemoglobin 8.8. Blood gases show pH 7.38, PO2 low at 39, PCO2 78, bicarb 44.7. Chemistries showed potassium 3.2. Enzymes from the heart normal. Urine does show some pyuria, 1+ bacteruria. Recent culture of the urine 2 days ago is just available for final determination today and shows a Pseudomonas aeruginosum which has sensitivity to cefepime and the meropenem family. She had been started on Cipro, but did not take any medicines and it is resistant to the fluoroquinolones. Chest x-ray is performed and reveals chronic obstructive pulmonary disease with expanded lungs , flattened diaphragms with no acute infiltrate or consolidation noted. ASSESSMENT: 1. Chronic obstructive pulmonary disease with an acute exacerbation. 2. Evidence of respiratory failure with significant hypoxia and elevated CO2. 3. Hypokalemia. 4. Acute urinary tract infection with Pseudomonas aeruginosum on culture with culture final results available today. 5. Hypertension. 6. Anemia with normocytic/normochromic presentation, probably secondary to chronic disease. 7. Significant deconditioning and weakness requiring ongoing rehabilitation and support. 8. History of chronic tobacco abuse, now stopped for approximately one month. PLAN: We will continue with current treatment program to include cefepime antibiotics with Align and Activia yogurt for probiotics. Course of Decadron via med-neb, Solu-Medrol being given in the Emergency Room. Close followup with Dr. Shane suggested when possible to assist with lung management and further investigation as required. #[id number] [facility]
[2017-04-08] MEDS: IPRATROPIUM/ALBUTEROL 3 ML VIAL INH SCH ×3 (16:03→20:05)
[2017-04-08] MEDS ORDERED: SODIUM CHLORIDE 0.9% 50ML 50 ML ONE ×2 (16:25→19:37)
[2017-04-08] MEDS ORDERED: CEFEPIME 2 GM VIAL IVPB ONE ×2 (16:25→19:37)
[2017-04-08] MEDS: CEFEPIME 1 GM in SODIUM CHLORIDE 0.9% 50ML 50 ML IVPB SCH (16:48)
[2017-04-08] MEDS: KCL 20 MEQ/NS 1,000 ML IVS PRN (20:01)
[2017-04-08] MEDS: BUDESONIDE FORMOTEROL FUMARATE INH SCH (20:05)
[2017-04-08] MEDS: [UNRECOGNIZED DRUG - OTHER] INH SCH (20:05)
[2017-04-08] MEDS: LISINOPRIL 10 MG TAB PO SCH (20:36)
[2017-04-09] MEDS: LEVALBUTEROL NEBS 1.25 MG/3 ML VIAL INH PRN ×3 (02:19→22:09)
[2017-04-09] MEDS: CEFEPIME 1 GM in SODIUM CHLORIDE 0.9% 50ML 50 ML IVPB SCH ×2 (03:56→15:06)
[2017-04-09] MEDS ORDERED: OMEPRAZOLE CAP 20 MG CAP ONE (04:19)
[2017-04-09] MEDS ORDERED: OMEPRAZOLE CAP 20 MG CAP PO SCH (06:30)
[2017-04-09] MEDS ORDERED: diphenhydrAMINE HCL 25 MG CAP PO ONE (06:48)
[2017-04-09] MEDS ORDERED: ACETAMINOPHEN 500 MG TAB PO ONE (06:49)
[2017-04-09] MEDS ORDERED: SODIUM CHLORIDE 0.9% 500ML 500 ML IVS SCH (07:00)
[2017-04-09] MEDS ORDERED: NON-FORMULARY MEDICATION 1 EA MIS (Tiotropium Bromide Monohydrate [Spiriva Respimat] 2 PUF INH SCH ×2 (08:00→09:00)
[2017-04-09] MEDS: [UNRECOGNIZED DRUG - OTHER] INH SCH ×2 (08:39→20:12)
[2017-04-09] MEDS: IPRATROPIUM/ALBUTEROL 3 ML VIAL INH SCH ×4 (08:39→20:10)
[2017-04-09] MEDS: BUDESONIDE FORMOTEROL FUMARATE INH SCH ×2 (08:39→20:12)
[2017-04-09] MEDS ORDERED: NEBIVOLOL 2.5 MG TAB PO SCH (09:00)
[2017-04-09] MEDS ORDERED: MONTELUKAST 10 MG TAB PO SCH (09:00)
[2017-04-09] MEDS: LISINOPRIL 10 MG TAB PO SCH ×2 (09:03→20:27)
[2017-04-09] MEDS ORDERED: CEFEPIME 2 GM VIAL IVPB ONE ×2 (14:57→19:14)
[2017-04-09] MEDS ORDERED: SODIUM CHLORIDE 0.9% 50ML 0 ML ONE (14:57)
[2017-04-09] MEDS: KCL 20 MEQ/NS 1,000 ML IVS PRN (18:29)
[2017-04-09] MEDS ORDERED: SODIUM CHLORIDE 0.9% 50ML 50 ML ONE (19:15)
--- NOTE | 2017-04-09 20:21 | PN ---
DATE: 04/09/17 SUPERVISING PHYSICIAN: Bassam Douglas M.D. SUBJECTIVE: The patient says he feels better since admission but continues to be significantly short of breath, but less so than yesterday. She is in the process of getting her second unit of blood and has been tolerating this without any complications. OBJECTIVE: VITAL SIGNS: Temperature 98.3, pulse 97, blood pressure 121/67, respirations 20, satting 97% on room air with 4 liters nasal cannula. I's and O 's show a positive balance of 110 with 610 in, 500 out. Weight is 61.8 kg. CHEST: Lung sounds are significantly diminished especially towards the bases. No wheezing or rhonchi is noted. HEART: Regular rate and rhythm. ABDOMEN: Soft , non-tender. Positive bowel sounds. EXTREMITIES: No clubbing, cyanosis or edema. NEUROLOGIC: She is alert and oriented times three. LABORATORY: White count is down to 3,600 with hemoglobin 7.1, hematocrit 21.2, platelet count 208,000. Differential shows to be with a left shift and increased bands at 8%. Chemistries show normal potassium and sodium. Carbon dioxide is down from previous admission to 37. BUN 10, creatinine 0.59. Liver functions show to be within normal limits. MICROBIOLOGY: Preliminary culture on the urine shows gram-negative rods. RADIOLOGY: No repeat radiology this morning. ASSESSMENT: 1. Chronic obstructive pulmonary disease with an acute exacerbation with leukocytosis and increased bands with developing pneumonia, although x-ray shows to be without any consolidations, the patient having a history of several recent exacerbations and requiring hospitalization. 2. Evidence of respiratory failure on admission with significant hypoxia and elevated CO2 showing improvement with initiation of treatment and transfusion of packed red blood cells. 3. Hypokalemia, improved with treatment. 4. Acute urinary tract infection with previous history of Pseudomonas aeruginosum on culture with current culture results showing gram-negative rods with final identification pending with the patient having been started on Cefipime. 5. Hypertension. 6. Anemia with normocytic/normochromic presentation, likely secondary to chronic disease state. 7. Significant deconditioning and weakness requiring ongoing rehabilitation and support from multiple exacerbations of chronic obstructive pulmonary disease. 8. History of chronic tobacco abuse, having stopped approximately one month previous. PLAN: Will continue with infusion of 2 units of packed red blood cells today. She will continue on Cefipime awaiting final results of urine cultures. Will plan to reevaluate in the morning with a repeat chest x-ray and laboratory studies. She will utilize CPAP as needed. Will anticipate possibly discharging to Swing Bed in the near future. Once stable clinically, she will need to be closely followed with Dr. Shane to assist in further management of her advanced COPD. Discussion of end stage COPD and possible hospice care was initiated today with the patient ultimately will depend on the patient's findings with Dr. Shane in the near future clinical followup. Will anticipate discharge once clinically stable. Until then, continue to monitor and treat appropriately. [facility][id number] [facility]
[2017-04-09] MEDS ORDERED: FUROSEMIDE INJ 20 MG/2 ML VIAL IV ONE (22:08)
[2017-04-09] MEDS ORDERED: FUROSEMIDE INJ 20 MG/2 ML VIAL ONE (22:09)
[2017-04-10] MEDS: LEVALBUTEROL NEBS 1.25 MG/3 ML VIAL INH PRN (00:39)
[2017-04-10 02:55] VITALS: BP 148/78; TEMP 98.1; O2SAT 84
--- NOTE | 2017-04-13 20:25 | DS ---
SUPERVISING PHYSICIAN: Bassam Douglas M.D. DISCHARGE DIAGNOSIS: 1. secondary to cardiopulmonary arrest from advanced end stage chronic obstructive pulmonary disease with an exacerbation on admission. 2. Chronic obstructive pulmonary disease with exacerbation acutely showing leukocytosis with questionable pneumonia. 3. Evidence of respiratory failure on admission with significant hypoxia and elevated CO2. 4. Anemia with a normocytic/normochromic presentation secondary to chronic disease state requiring 2 units of packed red blood cells. 5. Hypokalemia. 6. Acute urinary tract infection with a Pseudomonas aeruginosum final results with the patient having been treated with Cefipime. REASON FOR HOSPITALIZATION: Ms. Johnson is a 67 year-old female patient that was admitted initially to the hospital on 04/08/17 from the Emergency Room due to worsening shortness of breath. She has a longstanding history of end stage COPD and has had multiple hospitalizations within the last month. She had noted initially on admission that she had been getting worse over the last 3 or 4 days and requiring increase in oxygen. She had decreased ability to ambulate without any significant desaturations. Just sitting on the bedside commode resulted in her desatting to the 50s. She had stopped smoking in the past month and in the last days had been admitted multiple times both to [facility] and then to [facility] at [facility]. On arrival to the Emergency Room, her ABGs showed a saturation of 80s on 2 liters nasal cannula. She had also been recently treated for a urinary tract infection by home health under Dr. Ortiz' orders. Final cultures showed a Pseudomonas species. She had noted some weight loss and had been recently intubated in the past month, and had required significant oxygen support with BiPAP, but was unable to utilize this at home due to a bad connection as she was going from a nasal mask to a full face mask, therefore she presence to the Emergency Department. She was admitted to the Medical/ Surgical floor for ongoing evaluation and further treatment of end stage chronic obstructive pulmonary disease with an exacerbation. LABORATORY STUDIES: Initial white count on admission showed to be 5,100. Last laboratory studies done on showed white count to be 3,600 with a significant anemia of 7.1 hemoglobin and hematocrit 21.2. Platelet count 208, 000. Differential did show a left shift with increased bands at 8%. Her blood gas on admission showed a pH of 7.38 with PO2 of 39, bicarb 44.7, PCO2 78, satting 72% on nasal cannula at 2 liters at rest. Chemistries initially showed she had a low potassium at 3.2 with an increased carbon dioxide at 40, BUN 8, creatinine 0.7. Liver functions showed to be within normal limits except for an elevated alkaline phosphatase at 129. Troponin was less than 0.02 on admission. Second set of labs on the morning of 04/09/17 showed that she had normalized her potassium to 3.6, creatinine 0.59. Liver functions had normalized. Urinalysis on admission showed trace of blood with trace leukocyte esterase on dipstick with microscopic showing 3 to 5 RBCs, too numerous to count WBCs, 10 to 20 epithelials and 2+ bacteria. MICROBIOLOGY: Specimens that were submitted included 2 sets of blood cultures that showed no growth at 4 days and urine culture that showed final results of Pseudomonas aeruginosum that was highly resistant, only sensitive to Amikacin, Cefepime, Gentamicin, Indocin and Meropenem with the patient having been on Cefepime during hospitalization. BLOOD BANK: She had a transfusion after a cross match of A positive blood with negative antibody screen and was given 2 units of packed red blood cells, type specific, with no complications post transfusion. No repeat H&H was done after transfusion as the patient shortly after completion of transfusion early in the morning of 04/10/17. RADIOLOGY: She had a chest x-ray initially on admission through the Emergency Department that showed a single view chest with pulmonary vascular to be within normal limits with chronic-appearing interstitial lung markings throughout the lungs without acute-appearing infiltrate or consolidations per radiology interpretation. EKG: On admission to the . showed sinus tachycardia with a rate of 110 with no acute changes noted. HOSPITAL COURSE: Ms. Johnson, as noted above, was admitted from the . on 04/08/17 for severe exacerbation of her end stage chronic obstructive pulmonary disease along with anemia. She was started on aggressive pulmonary hygiene, CPAP and given that her H&H showed significant anemia, she was transfused 2 units of packed red blood cells. She had no initial complications through the transfusion process and on 04/09/17 post transfusion she was given 20 mg of Lasix as she was having some anxiety and increased effort to breathe which did result in a significant amount of diuresis of approximately 2100 mL after Thompson was placed. She was doing well and approximately at 2:30 in the morning on , I was notified that the patient was having a significant decrease in her responsiveness. After further examination, it was noted that the patient had gone into full cardiopulmonary arrest with no active spontaneous respirations or spontaneous circulation. She did have a limited code in place which indicated only intubation, no other heroic methods to be taken, including CPR. Dr. Bubba douglas, E. R. physician, was notified of the code as well as I was present and further examination there was no obvious cardiac function both on palpitation of pulses and via ultrasound by Dr. Douglas. The patient was provided respirations during attempts to find a pulse with Ambu bag mask and had again no return of spontaneous circulation or respirations. The patient was then pronounced at 2:42. was not unexpected as the patient was with severe COPD and end stage process of COPD. The family was notified of the patient's expiration and the patient was to be transferred to home of choice. PLAN: The patient's body was transferred to [facility] for arrangements per family. #[id number] [facility]
== END 2017-04-10 03:48 | disposition expired | DRG 871 ==
LOC: ER 10:34 → MS 15:06
PROVIDERS: ADMIT Emergency Medicine; ATTEND Nurse Practitioner Family
PROC: 30233N1 Transfusion of Nonautologous Red Blood Cells into Peripheral Vein, Percutaneous Approach (ICD-10-PCS; principal; 2017-04-09)
DX: A41.9 Sepsis, unspecified organism (principal); J18.9 Pneumonia, unspecified organism; I46.8 Cardiac arrest due to other underlying condition; J96.21 Acute and chronic respiratory failure with hypoxia; J44.1 Chronic obstructive pulmonary disease with (acute) exacerbation; N39.0 Urinary tract infection, site not specified; J44.0 Chronic obstructive pulmonary disease with (acute) lower respiratory infection; E87.6 Hypokalemia; B96.5 Pseudomonas (aeruginosa) (mallei) (pseudomallei) as the cause of diseases classified elsewhere; I10 Essential (primary) hypertension; D63.8 Anemia in other chronic diseases classified elsewhere; F32.9 Major depressive disorder, single episode, unspecified; M54.40 Lumbago with sciatica, unspecified side; R74.8 Abnormal levels of other serum enzymes; F41.9 Anxiety disorder, unspecified; R53.1 Weakness; Z99.81 Dependence on supplemental oxygen; Z66 Do not resuscitate; Z16.23 Resistance to quinolones and fluoroquinolones; Z87.891 Personal history of nicotine dependence; Z79.899 Other long term (current) drug therapy